=== PATIENT | male | born 2000 | race Two or more races ===

== ENCOUNTER 2024-04-17 01:22 | Emergency (ER) | payer MEDICAID, SELFPAY ==
[2024-04-17 01:22] VITALS: BMI 43.2
[2024-04-17 01:37] VITALS: BP 144/84; PULSE 124; RESP 20; TEMP 37.3; O2SAT 97
--- NOTE | 2024-04-17 01:44 | EKG_ITS ---
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
--- NOTE | 2024-04-17 01:45 | PD.EDURI ---
Upper Respiratory Inf. RME/HPI General Chief Complaint: Flu Like Symptoms Stated Complaint: cough, congestion, light headed Time Seen by Provider: 04/17/24 01:30 Source: patient Arrival date/time: 04/17/24 01:22 23-year-old male presents emergency department complaining of cough, sore throat, nasal congestion, and lightheaded for 3 days. Mode of arrival: ambulatory Limitations: no limitations Related Data Previous Rx's ?Medication ?Instructions ?Recorded ibuprofen 800 mg tablet 800 mg PO TID PRN pain #30 tabs 08/28/21 fluticasone propionate 50 1 spray intranasal QDAY PRN nasal 02/28/23 mcg/actuation nasal congestion #16 grams spray,suspension (Flonase Allergy Relief) pseudoephedrine HCl 120 mg 120 mg PO BID PRN nasal congestion 02/28/23 tablet,extended release (Sudafed #20 tabs 12 Hour) cyclobenzaprine 10 mg tablet 10 mg PO TID PRN muscle spasm #10 07/28/23 tabs ibuprofen 600 mg tablet 600 mg PO Q8H PRN fever or pain 07/28/23 #20 tabs benzonatate 100 mg capsule 100 mg PO BID #20 caps 04/17/24 Allergies Allergy/AdvReac Type Severity Reaction Status Date / Time No Known Allergies Allergy Verified 07/28/23 09:51 Review of Systems Review of Systems Systems Reviewed: All systems reviewed, normal except as documented Constitutional Constitutional: Reports system reviewed and no additional complaints, except as documented, Denies body ache(s), Denies chills and Denies fever(s) Eyes Eyes: Reports system reviewed and no additional complaints, except as documented and Denies change in vision ENT Ears, Nose, Mouth, and Throat: Reports system reviewed and no additional complaints, except as documented, Denies disequilibrium, Denies dizziness, Reports nasal congestion, Reports sore throat and Denies vertigo Cardiovascular Cardiovascular: Reports system reviewed and no additional complaints, except as documented, Denies chest pain and Denies dyspnea Respiratory Respiratory: Reports system reviewed and no additional complaints, except as documented, Denies chest congestion, Reports cough and Denies dyspnea Gastrointestinal Gastrointestinal: Reports system reviewed and no additional complaints, except as documented, Denies abdominal pain, Denies nausea and Denies vomiting Musculoskeletal Musculoskeletal: Reports system reviewed and no additional complaints, except as documented, Denies abnormal gait and Denies arthralgias Integumentary/Breasts Skin/Breast: Reports system reviewed and no additional complaints, except as documented, Denies erythema, Denies rash and Denies wounds Neurologic Neurologic: Reports system reviewed and no additional complaints, except as documented, Denies abnormal gait, Denies disequilibrium, Denies dizziness and Denies vertigo ED Exam General Limitations: Present no limitations General appearance: Present alert and in no apparent distress Head Head exam: Present atraumatic Eye Eye exam: Present normal appearance, PERRL and EOMI ENT ENT exam: Present normal exam, normal oropharynx and mucous membranes moist Neck Neck exam: Present normal inspection, full ROM and trachea midline Chest Chest inspection: Present normal inspection and symmetric chest wall rise Respiratory Respiratory exam: Present normal lung sounds bilaterally Cardiovascular Cardiovascular exam: Present regular rate, normal rhythm and normal heart sounds Abdominal Exam Abdominal exam: Present soft and normal bowel sounds Extremities Exam Extremities exam: Present normal inspection and full ROM Back Exam Back exam: Present normal inspection and full ROM Neurological Exam Neurological exam: Present alert, oriented X3 and CN II-XII intact Psychiatric Psychiatric exam: Present normal affect and normal mood Skin Skin exam: Present warm, dry, intact and normal color Course Quality Measures none Orders Category Date Time Status Bedside COVID-19 Antigen Test NOW Care 04/17/24 01:44 Active Bedside Influenza A&B Antigen Test NOW Care 04/17/24 01:44 Completed EKG (ED ONLY) *Do not use* NOW Care 04/17/24 01:44 Completed EKG (ED Only) Stat Exams 04/17/24 01:44 Draft Acetaminophen Tab [Tylenol ES Tab] Med 04/17/24 01:44 Discontinued 1,000 mg PO X1 ONE Vital Signs Vital signs: Vital Signs Temperature 99.1 F 04/17/24 01:37 Pulse Rate 124 H 04/17/24 01:37 Respiratory Rate 20 04/17/24 01:37 Blood Pressure 144/84 H 04/17/24 01:37 Pulse Oximetry (%) 97 04/17/24 01:37 Oxygen Delivery Method Room Air 04/17/24 01:37 97% room air within normal limits Procedures -ED EKG Interpretation #1: Date of EK04/17/24 Time of EK:54 Rate: 109 Interpretation: Interpreted by me EKG Impression: No acute ST-T changes, No ectopy, No ischemic changes, Sinus tachycardia and Normal QRS Upper Respiratory Infection MDM Narrative MDM Narrative:: 23-year-old male presents emergency department complaining of cough, sore throat, nasal congestion, and lightheaded for 3 days. No adventitious lung sounds on auscultation. Throat exam no erythema, exudates, or tonsil megaly observed. EKG sinus tach 109. Patient appears nontoxic and is hemodynamically stable. Patient not appear to be in any respiratory distress. Patient likely suffering viral infection. Patient data External records reviewed:: [facility] previous records Clinical information provided by:: patient Social determinants that could affect healthcare access:: none Patient has the following chronic illnesses:: None How is presenting disease/condition affected by chronic disease/condition?: no chronic disease Evaluation data The following diagnostics were reviewed and interpreted by me:: lab results Lab and/or radiology exams considered but not ordered:: Ordered Interpretation Summary: Interpreted by me Medications / Prescriptions Medications or Prescriptions considered but not ordered:: Ordered Medication administrations:: Medication Administration History Discontinued Medications Acetaminophen (Acetaminophen 500 Mg Tablet) 1,000 mg PO X1 ONE Stop: 04/17/24 01:45 Given Consultations Consultation(s) initiated? (list below): No Diagnosis Upper Respiratory Differential Diagnosis: upper respiratory infection, sinusitis, viral infection, bronchitis, influenza and pharyngitis Most likely diagnosis given after review of the tests above:: Viral infection Admission Indicated Admission indicated?: not indicated Admission Request Was there a request for admission?: No Disposition Plan Disposition Plan: Discharge Discharge Attestation Discharge Attestation: The patient and all family members were given an opportunity to ask questions and understood the discharge instructions. Discharge instructions specifically effects, indications for sooner follow up or return to the emergency department, and the expected course of current diagnosis. Patient condition: Stable Discharge Plan Plan Patient Disposition: HOME (Self Care) Disposition Comment: Stable Prescriptions/Referrals Prescriptions/Med Rec: New benzonatate 100 mg capsule 100 mg PO BID Qty: 20 0RF No Action ibuprofen 800 mg tablet 800 mg PO TID PRN (Reason: pain) Qty: 30 0RF cyclobenzaprine 10 mg tablet 10 mg PO TID PRN (Reason: muscle spasm) Qty: 10 0RF ibuprofen 600 mg tablet 600 mg PO Q8H PRN (Reason: fever or pain) Qty: 20 0RF fluticasone propionate [Flonase Allergy Relief] 50 mcg/actuation spray,suspension 1 spray intranasal QDAY PRN (Reason: nasal congestion) Qty: 16 0RF Rx Instructions: administer into each nostril pseudoephedrine HCl [Sudafed 12 Hour] 120 mg tablet extended release 120 mg PO BID PRN (Reason: nasal congestion) Qty: 20 0RF Problem List Clinical Impression: Viral infection Patient/Caregiver Discharge Instructions Discharge Activity: activity as tolerated Education Materials: ED Viral Syndrome (Adult) Additional Instructions: Drink plenty of fluids and get plenty of rest. Take Tylenol or Motrin as needed for fever or pain. Follow-up with primary care provider in 2 to 3 days. Return to emergency department for any worsening symptoms or as needed. Print Language: [place] Stand Alone Forms: [place] Award Info., Patient Portal Info Letter PA/CUT LACE MACHINE OPERATOR Supervising Physician PA/CUT LACE MACHINE OPERATOR Supervising Physician: Dr. Ruiz
[2024-04-17 02:00] VITALS: TEMP 37.3
[2024-04-17] MEDS: ACETAMINOPHEN 500 MG TABLET 1000 MG PO (02:00)
[2024-04-17 02:13] VITALS: RESP 18
== END 2024-04-17 02:14 | disposition home or self-care (01) ==
LOC: SERX 02:15
PROVIDERS: Emergency Provider Emergency Medicine; PCP Family Medicine
DX: B34.9 Viral infection, unspecified (principal); R00.0 Tachycardia, unspecified
CPT/HCPCS: 87400; 87811; 93005; 99283; A9270